=== PATIENT | male | born 1950 | race Caucasian/White ===

== ENCOUNTER 2019-08-23 06:09 | Emergency (ER) | payer MEDICARE, OTHER ==
[2019-08-23] MEDS ORDERED: diPHENhydraMINE IV* 50 MG/ML 1 ml VIAL (BENADRYL) SLOW PUSH ONE (06:22)
[2019-08-23] MEDS ORDERED: methylPREDNISolone 125 MG* 2 ML VIAL IV ONE (06:23)
--- NOTE | 2019-08-23 06:29 | ED ---
Allergic Reaction/Systemic - HPI Summary HPI Summary: 68-year-old male with a significant past medical history of rheumatoid arthritis , on Lamisil for onychomycosis presents to the emergency department today with chief complaint of lip swelling and a rash. Patient denies use of George inhibitors or past allergic reaction/angioedema. Patient states yesterday he was eating at a [place] restaurant when he had a handful of almonds which he believes caused his rash which began at 2am. Patient has erythema and edema of the right hand as well as the lower lip. There is no evidence of airway involvement in patient denies shortness of breath, drooling, sore throat. Patient has been symptomatic since 2 AM and has not taken any medication prior to arrival. Patient otherwise feels well and denies fever, chest pain, shortness of breath, pain with urination, nausea, vomiting, diarrhea, cough. Patient states his mother has a "thyroid disorder". Surgical history is noncontributory. - History of Current Complaint Chief Complaint: EDAllergicReaction Time Seen by Provider: 08/23/19 06:16 Hx Obtained From: Patient Onset/Duration: Gradual Onset, Started hours ago Timing: Constant Severity Initially: Mild Severity Currently: Mild Pain Intensity: 0 Pain Scale Used: 0-10 Numeric Character: Swelling, Pruritus, Hives Associated Signs And Symptoms: Positive: Rash. Negative: Abdominal Pain, Chest Pain, Cough Wheezing, Diaphoresis, Difficulty Breathing, Lightheadedness, Nausea , Throat Tightening - Related Hx Possible Reaction To: Unknown, Food - Allergies/Home Medications Allergies/Adverse Reactions: Allergies Allergy/AdvReac Type Severity Reaction Status Date / Time No Known Allergies Allergy Verified 08/23/19 06:12 PMH/Surg Hx/FS Hx/Imm Hx Infectious Disease History: No Infectious Disease History: Denies: Traveled Outside the [place] in Last 30 Days Review of Systems Constitutional: Negative Eyes: Negative ENT: Negative Cardiovascular: Negative Respiratory: Negative Gastrointestinal: Negative Genitourinary: Negative Positive: Edema Positive: Rash Neurological/Mental Status: Negative Psychological: Normal All Other Systems Reviewed And Are Negative: Yes Physical Exam - Summary Physical Exam Summary: Patient is in no acute distress with no evidence of airway involvement. No evidence of pharyngeal edema or tongue swelling. There are mild diffuse areas of urticaria surrounding the body the patient states he is subjectively pruritic. There is noted edema to the lower lip consistent with angioedema. There is mild swelling to the right palm. No evidence of infection. Triage Information Reviewed: Yes Vital Signs On Initial Exam: Initial Vitals Temp Pulse Resp BP Pulse Ox 97.3 F 84 18 154/97 97 08/23/19 06:12 08/23/19 06:12 08/23/19 06:12 08/23/19 06:12 08/23/19 06:12 Vital Signs Reviewed: Yes Appearance: Positive: Well-Appearing, No Pain Distress, Well-Nourished Skin: Positive: Warm, Skin Color Reflects Adequate Perfusion Eyes: Positive: EOMI, PATTI ENT: Positive: Hearing grossly normal Respiratory/Lung Sounds: Positive: Clear to Auscultation, Breath Sounds Present Cardiovascular: Positive: RRR, S1, S2 Abdomen Description: Positive: Nontender, Soft Bowel Sounds: Positive: Present Musculoskeletal: Positive: Strength/ROM Intact Neurological: Positive: Sensory/Motor Intact, Alert, Oriented to Person Place, Time, Normal Gait, Facial Symmetry, Speech Normal Psychiatric: Positive: Normal, Affect/Mood Appropriate AVPU Assessment: Alert Procedures - Sedation Patient Received Moderate/Deep Sedation with Procedure: No Diagnostics - Vital Signs Vital Signs Temp Pulse Resp BP Pulse Ox 08/23/19 06:12 97.3 F 84 18 154/97 97 - Laboratory Result Diagrams: 08/23/19 06:47 08/23/19 06:47 Lab Statement: Any lab studies that have been ordered have been reviewed, and results considered in the medical decision making process. Allergic Reaction Course/Dx - Course Course Of Treatment: Patient was evaluated in the emergency department today due to angioedema caused by unknown substance. There is no evidence of airway involvement, tongue swelling, pharyngeal swelling. Patient was given IV Benadryl and methylprednisone. Laboratory studies returned showing no evidence of leukocytosis or significant electrolyte abnormality. TSH is within normal limits. Patient was observed for approximately 1.5 hours and remained asymptomatic. Angioedema of the lips appeared to decrease mildly. Patient has been symptomatic for approximately 5 hours with no evidence of airway involvement or competitions and was discharged with an outpatient prescription for steroids and told to follow up with PCP for further evaluation and management in 3 days. - Diagnoses Differential Diagnosis/HQI/PQRI: Positive: Airway Obstruction, Anaphylaxis, Angioedema, Local Allergic Reaction, Urticaria Provider Diagnoses: Angioedema Discharge ED - Sign-Out/Discharge Documenting (check all that apply): Patient Departure - Discharge Plan Condition: Stable Disposition: HOME Prescriptions: predniSONE 50 mg TAB [Deltasone 50 mg TAB] 50 mg PO DAILY #4 tab Patient Education Materials: Angioedema (ED) Referrals: [facility] [Outside] - 3 Days No Primary Care Phys,NOPCP [Primary Care Provider] - Additional Instructions: You were seen in the emergency department today with angioedema due to an allergic reaction. I'm not certain what caused this reaction however please take steroid once daily for 4 days as well as Benadryl 50 mg twice daily for 4 days and follow-up with your primary care provider or [facility] in 3 days for further evaluation and management. Please follow up with PCP also for investigation as to what caused your angioedema today. Please return to the emergency department immediately if you develop any new or worsening symptoms such as shortness of breath, trouble breathing, sore throat. - Billing Disposition and Condition Condition: STABLE Disposition: Home
[2019-08-23 07:03] LABS: ABS Eosinophils 0.1 10^3/ul (0-0.6); ABS Lymphocytes 0.9 10^3/ul (1.0-4.8); ABS Monocytes 0.5 10^3/ul (0-0.8); Eosinophil % 0.8 %; Hematocrit 44 % (42-52); Hemoglobin 14.9 g/dL (14.0-18.0); Lymphocyte % 10.5 %; Mean Corpuscular HGB Conc 34 g/dL (31-36); Mean Corpuscular Hemoglobin 32 pg (27-31); Mean Corpuscular Volume 94 fL (80-94); Mean Platelet Volume 8.9 fL (7.4-10.4); Nucleated Red Blood Cells % 0.1; Platelet Count 194 10^3/uL (150-450); Red Blood Count 4.65 10^6 /uL (4.18-5.48); Red Cell Distribution Width 14 % (10-15); White Blood Count 8.5 10^3/uL (3.5-10.8)
[2019-08-23 07:44] LABS: Albumin/Globulin Ratio 1.3 (1-3); BUN/Creatinine Ratio 16.8 (8-20); Calcium 8.8 mg/dL (8.6-10.3); EGFR African American 95.7 (>60); EGFR Non-African American 79.1 (>60); Potassium 4.3 mmol/L (3.5-5.0); Total Bilirubin 0.6 mg/dL (0.2-1.0)
[2019-08-23 08:01] VITALS: BP 137/79
[2019-08-23 08:19] LABS: TSH (Thyroid Stimulating Horm) 1.65 mcIU/mL (0.34-5.60)
== END 2019-08-23 07:55 | disposition home or self-care (01) ==
LOC: ED 06:09
DX: T78.3XXA Angioneurotic edema, initial encounter (principal); R21 Rash and other nonspecific skin eruption; Z79.52 Long term (current) use of systemic steroids
CPT/HCPCS: 36415; 80053; 84443; 85025; 96374; 96375; 99283; J1200; J2930

== ENCOUNTER 2021-12-01 07:30 | Observation (INO) ==
[~2021-12-01 07:30] MED LIST: Buffered Lidocaine 1% SYRIN 1 ml INTRADERM ONE; Famotidine IV 10 MG/ML 2 ml VIAL (20 mg) IV ONE; Lactated Ringers 1000 ml BAG 1,000 ML IV SCH
[2021-12-01] MEDS ORDERED: ceFAZolin 2 GM in NS PREMIX 2 GM/100 ML BAG IVPB ONE (08:37)
[2021-12-01] MEDS ORDERED: Famotidine IV 10 MG/ML 2 ml VIAL (20 mg) ONE (08:37)
[2021-12-01] MEDS ORDERED: ceFAZolin 2 GM PREMIX 0 GM/0 ML BAG ONE (08:37)
[2021-12-01] MEDS ORDERED: Acetaminophen IV 1 GM/100ML 0 ML IV ONE (09:34)
[2021-12-01] MEDS ORDERED: Dexamethasone IV 4 MG/ML VIAL 1 ml VIAL ONE (09:34)
[2021-12-01] MEDS ORDERED: Rocuronium 50 mg VIAL 10 mg/ml 5 ml VIAL (50 mg) ONE (09:34)
[2021-12-01] MEDS ORDERED: Ondansetron 4 mg VIAL 2 MG/ML 2 ml VIAL ONE (09:34)
[2021-12-01] MEDS ORDERED: Bupivacaine 0.5% SDV PF 30ML VIAL ONE (11:52)
[2021-12-01] MEDS ORDERED: fentaNYL 100 mcg/2 ml 50 MCG/ML VIAL IV PRN (12:14)
[2021-12-01] MEDS ORDERED: Naloxone 0.4 mg VIAL 0.4 mg/ml 1 ml VIAL IV PRN (12:14)
[2021-12-01] MEDS ORDERED: Ondansetron 4 mg VIAL 2 MG/ML 2 ml VIAL IV PRN ×2 (12:14→13:20)
[2021-12-01] MEDS ORDERED: Acetaminophen IV 1 GM/100ML 100 ML IV ONE ×2 (12:18→12:40)
[2021-12-01] MEDS ORDERED: Glycopyrrolate IV 0.2 MG/ML 1 ML VIAL ONE (12:22)
[2021-12-01] MEDS ORDERED: EPHEDrine (Pressors) 50 MG/ML VIAL ONE (12:28)
[2021-12-01] MEDS ORDERED: Midazolam 2 mg/2 ml VIAL 1 mg/ml 2 ml VIAL (2 mg) ONE (12:36)
[2021-12-01] MEDS ORDERED: fentaNYL 100 mcg/2 ml 50 MCG/ML VIAL ONE (12:36)
[2021-12-01] MEDS ORDERED: Phenylephrine IV 10 MG/ML 1 ml VIAL ONE (12:40)
[2021-12-01] MEDS ORDERED: Propofol 10 MG/ML 20 ML BTL ONE ×2 (13:01→13:47)
[2021-12-01] MEDS ORDERED: Ondansetron ODT 4 mg TAB 4 MG TAB PO PRN (13:20)
[2021-12-01] MEDS ORDERED: Morphine 2 MG/ML SYRINGE IV PRN (13:20)
[2021-12-01] MEDS ORDERED: Lactulose 30 ml UDC PO PRN (13:20)
[2021-12-01] MEDS ORDERED: Magnesium Hydroxide LIQ 30 ML UDC PO PRN (13:20)
[2021-12-01] MEDS ORDERED: Lactated Ringers 1000 ml BAG 1,000 ML IV SCH (14:00)
[2021-12-01] MEDS: ceFAZolin 1 GM ADVAN 1 GM in NS 0.9% 50 ML 50 ML IVPB SCH (20:43)
[2021-12-01] MEDS: Magnesium Hydroxide LIQ 30 ML UDC PO SCH (20:43)
[2021-12-02] MEDS: ceFAZolin 1 GM ADVAN 1 GM in NS 0.9% 50 ML 50 ML IVPB SCH ×2 (04:07→12:09)
[2021-12-02 06:18] LABS: Hematocrit 35 % (42-52); Hemoglobin 11.6 g/dL (14.0-18.0); Mean Platelet Volume 8.2 fL (7.4-10.4); Platelet Count 214 10^3/uL (150-450)
[2021-12-02 06:38] LABS: Calcium 8.6 mg/dL (8.6-10.3); Potassium 4.8 mmol/L (3.5-5.0); eGFR CKD-EPI 84.5 (>60)
[2021-12-02] MEDS: Magnesium Hydroxide LIQ 30 ML UDC PO SCH (08:24)
[2021-12-02] MEDS ORDERED: CMCS: Simvastatin 10 mg TAB (NF) PO SCH (09:00)
[2021-12-02] MEDS ORDERED: Vitamin THERAPEUTIC TAB PO SCH (09:00)
[2021-12-02 11:44] VITALS: BP 121/75
== END 2021-12-02 12:54 | disposition home or self-care (01) ==
LOC: INTOOBSV 08:28 → AA 08:28 → SSU 15:54
PROVIDERS: ADMIT Orthopaedic Surgery Adult Reconstructive Orthopaedic Surgery; ATTEND Orthopaedic Surgery Adult Reconstructive Orthopaedic Surgery

== ENCOUNTER 2023-01-28 16:25 | Inpatient (IN) ==
[2023-01-28] MEDS ORDERED: cefTRIAXone 2 GM ADDV.VIAL 2 GM in NS 0.9% 100 ml BAG 100 ML IV ONE (17:54)
[2023-01-28] MEDS ORDERED: Azithromycin 500 mg/250 ml NS 500 MG/250 ML BAG IVPB ONE (17:54)
[2023-01-28 18:06] LABS: Hematocrit 39.2 % (38-53); Hemoglobin 13.5 g/dL (13.2-16.3); Mean Corpuscular Hemoglobin 32.3 pg (27-33); Mean Corpuscular Hgb Conc 34.4 g/dL (31-36); Mean Platelet Volume 7.2 fL (7.5-11.2); Platelet Count 318 10^3/uL (150-450); Red Blood Count 4.17 10^6/uL (4.06-5.63); Red Cell Distribution Width 14.3 % (12-17); White Blood Count 4.3 10^3/uL (3.6-10.2)
[2023-01-28] MEDS ORDERED: cefTRIAXone 2 gm/50 mL D5W 2 GM/50 ML BAG IV ONE (18:15)
[2023-01-28 18:24] LABS: Albumin 3.5 g/dL (3.2-5.2); Albumin/Globulin Ratio 0.9 (1-3); C Reactive Protein 191.72 mg/L (<8.01); Calcium 8.9 mg/dL (8.6-10.3); Creatinine, Serum 1.03 mg/dL (0.67-1.17); Globulin 3.7 g/dL (2-4); Potassium 3.6 mmol/L (3.5-5.0); Total Bilirubin 0.8 mg/dL (0.2-1.0); Total Protein 7.2 g/dL (6.4-8.9); eGFR CKD-EPI 77.7 (>60)
[2023-01-28 18:49] LABS: ABS Lymphocytes 1.1 10^3/uL (1.0-4.8); ABS Monocytes 0.6 10^3/uL (0.0-1.1); ABS Neutrophils 2.6 10^3/uL (1.5-7.6); ABS Nucleated RBC 0.01 10^3/ul; Eosinophil % 0.9 %; Lymphocyte % 25.3 %; Nucleated Red Blood Cells % 0.1 /100 WBC (0.0-0.4)
[2023-01-28 18:59] LABS: Urine Appearance Clear; Urine Bilirubin Negative (Negative); Urine Blood Negative (Negative); Urine Color Yellow; Urine Glucose Negative (Negative); Urine Ketones Negative (Negative); Urine Nitrite Negative (Negative); Urine Protein Negative (Negative); Urine Urobilinogen Negative (Negative)
[2023-01-28] MEDS ORDERED: Iohexol 300 (CONTRAST) 10 ML SDV IV ONE (21:51)
[2023-01-28] MEDS ORDERED: Acetaminophen IV 1 GM/100ML 1,000 MG/100 ML BAG IV ONE (22:22)
[2023-01-28] MEDS ORDERED: Piperacillin/Tazobac 3.375 BAG 3.375 GM/100 ML BAG IV ONE (23:30)
[2023-01-28] MEDS ORDERED: Zosyn per Pharmacy NOTE FOLLOW UP SCH (23:45)
[2023-01-29] MEDS: Enoxaparin 40 MG/0.4 ML SYR SUBCUT SCH ×2 (00:06→20:11)
[2023-01-29 00:23] LABS: Activated Partial Thrombo Time 31.4 seconds (26.0-38.0); INR 1.32 (0.88-1.18)
[2023-01-29] MEDS: DOXYcycline 100 MG in NS 0.9% 250 ml 250 ML IVPB SCH ×2 (01:17→12:17)
[2023-01-29] MEDS: ZOSYN 3.375 GM Q8H per EXTENDED INFUSION IV SCH ×3 (04:01→20:13)
[2023-01-29 06:27] LABS: Hematocrit 39.6 % (38-53); Hemoglobin 13.3 g/dL (13.2-16.3); Mean Corpuscular Hgb Conc 33.7 g/dL (31-36); Mean Corpuscular Volume 94.9 fL (80-97); Platelet Count 303 10^3/uL (150-450); Red Blood Count 4.17 10^6/uL (4.06-5.63); Red Cell Distribution Width 14.6 % (12-17); White Blood Count 4.7 10^3/uL (3.6-10.2)
[2023-01-29 06:54] LABS: Albumin 3.2 g/dL (3.2-5.2); Albumin/Globulin Ratio 0.9 (1-3); Calcium 8.6 mg/dL (8.6-10.3); Creatinine, Serum 0.96 mg/dL (0.67-1.17); Globulin 3.5 g/dL (2-4); Potassium 3.7 mmol/L (3.5-5.0); Total Bilirubin 0.6 mg/dL (0.2-1.0); Total Protein 6.7 g/dL (6.4-8.9); eGFR CKD-EPI 84.5 (>60)
[2023-01-29 07:09] LABS: RBC Morphology Normal (Normal)
[2023-01-29 08:12] LABS: ABS Lymphocytes 1.5 10^3/uL (1.0-4.8); ABS Monocytes 0.7 10^3/uL (0.0-1.1); ABS Neutrophils 2.4 10^3/uL (1.5-7.6); ABS Nucleated RBC 0.01 10^3/ul; Eosinophil % 0.5 %; Lymphocyte % 32.1 %; Nucleated Red Blood Cells % 0.2 /100 WBC (0.0-0.4)
[2023-01-30] MEDS: ZOSYN 3.375 GM Q8H per EXTENDED INFUSION IV SCH ×2 (03:48→11:57)
[2023-01-30 06:48] LABS: Hematocrit 36.6 % (38-53); Hemoglobin 12.7 g/dL (13.2-16.3); Mean Corpuscular Hemoglobin 32.4 pg (27-33); Mean Corpuscular Hgb Conc 34.6 g/dL (31-36); Mean Corpuscular Volume 93.6 fL (80-97); Mean Platelet Volume 6.8 fL (7.5-11.2); Platelet Count 299 10^3/uL (150-450); Red Cell Distribution Width 14.8 % (12-17); White Blood Count 5.1 10^3/uL (3.6-10.2)
[2023-01-30 07:08] LABS: Calcium 8.3 mg/dL (8.6-10.3); Creatinine, Serum 0.88 mg/dL (0.67-1.17); Globulin 3.1 g/dL (2-4); Potassium 3.5 mmol/L (3.5-5.0); Total Bilirubin 0.6 mg/dL (0.2-1.0); Total Protein 6.1 g/dL (6.4-8.9); eGFR CKD-EPI 91.9 (>60)
[2023-01-30 13:06] VITALS: BP 125/75
== END 2023-01-30 14:30 | disposition home or self-care (01) | DRG 195 ==
LOC: ED 16:25 → EDHOLD 19:15 → SUATTDRO 19:15 → EDHOLD 21:51 → MED 23:21
PROVIDERS: ADMIT Hospitalist; ATTEND Hospitalist